=== PATIENT | female | born 1935 | race Caucasian/White ===

== ENCOUNTER 2017-03-26 18:12 | Emergency (ER) | payer MEDICARE, BC ==
[2017-03-26] MEDS ORDERED: Aspirin 81 MG Tab.Chew PO ONE (18:39)
[2017-03-26] MEDS ORDERED: Nitroglycerin 2% Oint 1 GM UD Packet TOP ONE (18:39)
[2017-03-26] MEDS ORDERED: Ketorolac 30 MG/ML SDV IVPUSH ONE (18:39)
--- NOTE | 2017-03-26 18:45 | EDM.PDOC ---
ED HPI GENERAL MEDICAL PROBLEM - General Chief Complaint: Chest Pain Stated Complaint: PT HAS CHEST PAINS Time Seen by Provider: 03/26/17 18:30 Source of Information: Reports: Patient History Limitations: Reports: No Limitations - History of Present Illness INITIAL COMMENTS - FREE TEXT/NARRATIVE: History of present illness: [81-year-old female comes in with a male of complaints that range from chest pain, to crunching neck, to pressure in her ears, as well as dialoguing about a voice she thinks she hears that then she looks and no one is there.] Review of systems: As per history of present illness and below otherwise all systems reviewed and negative. Past medical history: As per history of present illness and as reviewed below otherwise noncontributory. Surgical history: As per history of present illness and as reviewed below otherwise noncontributory. Social history: No reported history of drug or alcohol abuse. Family history: As per history of present illness and as reviewed below otherwise noncontributory. Physical exam: HEENT: Atraumatic, normocephalic, pupils reactive, negative for conjunctival pallor or scleral icterus, mucous membranes moist, throat clear, neck supple, nontender, trachea midline. Lungs: Clear to auscultation, breath sounds equal bilaterally, chest nontender. Heart: S1S2, regular, negative for clicks, rubs, or JVD. Abdomen: Soft, nondistended, nontender. Negative for masses or hepatosplenomegaly. Negative for costovertebral tenderness. Pelvis: Stable nontender. Genitourinary: Deferred. Rectal: Deferred. Extremities: Atraumatic, negative for cords or calf pain. Neurovascular unremarkable. Neuro: Awake, alert, oriented. Cranial nerves II through XII unremarkable. Cerebellum unremarkable. Motor and sensory unremarkable throughout. Exam nonfocal. Patient's chest x-ray is negative for any acute findings the patient does have a mild elevation of her white blood cell dialogue with the hospitalist and with her history as well as her age and fragility we will place her inpatient for observation status tonight to see if she declares herself. Diagnostics: [CBC, CMP, EKG, troponin, chest x-ray] Therapeutics: [Saline lock, Toradol, aspirin, nitroglycerin] Impression: Leukocytosis] Plan: [Mental observation status] Definitive disposition and diagnosis as appropriate pending reevaluation and review of above. Middle Epigastric Pain Score (Numeric/FACES): 4 - Related Data Allergies Allergy/AdvReac Type Severity Reaction Status Date / Time erythromycin base Allergy Cannot Verified 03/26/17 18:41 Remember succinylcholine Allergy Anaphylactic Verified 03/26/17 18:41 Shock Sulfa (Sulfonamide Allergy Cannot Verified 03/26/17 18:41 Antibiotics) Remember thiopental [From Pentothal] Allergy Cannot Verified 03/26/17 18:41 Remember Home Meds: Home Meds Aspirin [Halfprin] 81 mg PO ASDIRECTED 03/26/17 [History] Estradiol 1 tab PO ASDIRECTED 03/26/17 [History] LORazepam 0.5 mg PO DAILY 03/26/17 [History] Levothyroxine 1 tab PO DAILY 03/26/17 [History] Lisinopril 10 mg PO BID 03/26/17 [History] Metoprolol Tartrate [Lopressor] 50 mg PO BID 03/26/17 [History] amLODIPine [Norvasc] 5 mg PO DAILY PRN 03/26/17 [History] ED ROS GENERAL - Review of Systems Review Of Systems: See Below (See history of present illness) ED EXAM, GENERAL - Physical Exam Exam: See Below (See history of present illness) Course - Vital Signs Last Recorded V/S: Last Vital Signs Temp 35.9 C 03/26/17 18:15 Pulse 72 03/26/17 18:52 Resp 15 03/26/17 18:52 BP 140/86 03/26/17 18:52 Pulse Ox 97 03/26/17 18:52 - Orders/Labs/Meds Orders: Active Orders 24 hr Category Date Time Status EKG Documentation Completion [RC] STAT Care 03/26/17 18:40 Active Chest 1V Frontal [CR] Stat Exams 03/26/17 18:39 Taken UA W/MICROSCOPIC [URIN] Stat Lab 03/26/17 20:29 Uncollected Saline Lock Insert [OM.PC] Stat Oth 03/26/17 18:39 Ordered Labs: Laboratory Tests 03/26/17 03/26/17 Range/Units 18:25 18:25 WBC 12.39 H (4.0-11.0) K/uL RBC 4.73 (4.30-5.90) M/uL Hgb 14.2 (12.0-16.0) g/dL Hct 42.0 (36.0-46.0) % MCV 88.8 (80.0-98.0) fL MCH 30.0 (27.0-32.0) pg MCHC 33.8 (31.0-37.0) g/dL RDW Std Deviation 45.9 (28.0-62.0) fl RDW Coeff of Leida 14 (11.0-15.0) % Plt Count 276 (150-400) K/uL MPV 10.00 (7.40-12.00) fL Neut % (Auto) 61.7 (48.0-80.0) % Lymph % (Auto) 28.0 (16.0-40.0) % Juab % (Auto) 8.9 (0.0-15.0) % Eos % (Auto) 1.0 (0.0-7.0) % Baso % (Auto) 0.4 (0.0-1.5) % Neut # (Auto) 7.6 H (1.4-5.7) K/uL Lymph # (Auto) 3.5 H (0.6-2.4) K/uL Juab # (Auto) 1.1 H (0.0-0.8) K/uL Eos # (Auto) 0.1 (0.0-0.7) K/uL Baso # (Auto) 0.1 (0.0-0.1) K/uL Nucleated RBC % 0.0 /100WBC Nucleated RBCs # 0 K/uL Sodium 140 (136-146) mmol/L Potassium 3.4 L (3.5-5.1) mmol/L Chloride 103 (98-110) mmol/L Carbon Dioxide 27 (21-31) mmol/L BUN 15 (6.0-23.0) mg/dL Creatinine 1.0 (0.6-1.5) mg/dL Est Cr Clr Drug Dosing TNP Estimated GFR (MDRD) 53.0 ml/min Glucose 152 H (60-110) mg/dL Calcium 9.1 (8.8-10.8) mg/dL Total Bilirubin 0.3 (0.1-1.5) mg/dL AST 21 (5-40) IU/L ALT 15 (8-54) IU/L Alkaline Phosphatase 82 (40-150) Troponin I < 0.10 (0.0-0.29) NG/ML Total Protein 7.8 (6.0-8.0) g/dL Albumin 4.0 (3.4-4.8) g/dL Globulin 3.8 H (2.0-3.5) g/dL Albumin/Globulin Ratio 1.1 L (1.3-2.8) Amylase 36 (10-90) U/L Lipase 45 (7-80) U/L Meds: Medications Discontinued Medications Generic Name Dose Route Start Last Admin Trade Name Freq PRN Reason Stop Dose Admin Aspirin 324 mg 03/26/17 18:39 03/26/17 18:47 Aspirin PO 03/26/17 18:40 324 mg ONETIME ONE Administration Ketorolac Tromethamine 30 mg 03/26/17 18:39 03/26/17 18:50 Toradol IVPUSH 03/26/17 18:40 Not Given ONETIME ONE Nitroglycerin 0.5 gm 03/26/17 18:39 03/26/17 18:50 Nitro-Bid 2% TOP 03/26/17 18:40 0.5 gm ONETIME ONE Administration Departure - Departure Time of Disposition: 20:32 Disposition: Refer to Observation Condition: Good Clinical Impression: Leukocytosis - Discharge Information Forms: ED Department Discharge - My Orders Last 24 Hours: My Active Orders 03/26/17 18:39 Chest 1V Frontal [CR] Stat Saline Lock Insert [OM.PC] Stat 03/26/17 18:40 EKG Documentation Completion [RC] STAT 03/26/17 20:29 UA W/MICROSCOPIC [URIN] Stat - Assessment/Plan Last 24 Hours: My Active Orders 03/26/17 18:39 Chest 1V Frontal [CR] Stat Saline Lock Insert [OM.PC] Stat 03/26/17 18:40 EKG Documentation Completion [RC] STAT 03/26/17 20:29 UA W/MICROSCOPIC [URIN] Stat
[2017-03-26 19:14] LABS: CHLORIDE,CL 103 mmol/L (98-110); SODIUM,NA 140 mmol/L (136-146)
[2017-03-26 21:14] VITALS: BP 140/80
--- NOTE | 2017-03-27 14:10 | CR ---
EXAM DATE: 03/26/17 PATIENT'S AGE: 81 Patient: SHEILA CHOI Facility: [place], [place] Site . Site : [id number] Study: XRay Chest [id number]/26/2017 7:49:56 PM Ordering Physician: Doctor Maciel Final Report: Indication: Chest pain Technique: Chest 1 view Comparison: None Findings/Impression: Cardiovascular and mediastinum: Unremarkable cardiac size for a portable technique. An ectatic, unfolded aorta. Sternotomy sutures and a left chest cardiac pacer. Lungs and pleural space: Lungs are clear. No sign of infiltrate or mass. No sign of pleural effusion. No pneumothorax. Bones and soft tissues: A cholecystectomy clip. No significant osseous abnormality seen. Dictated by Jose G Walton MD @ 03/26/2017 8:12:34 PM Dictated by: Jose G Walton MD @ 03/26/2017 20:12:45 (Electronic Signature) Report Signed by Proxy. MAIA
== END 2017-03-26 21:05 | disposition left against medical advice (07) ==
LOC: MW.ED 18:12 → MW.MS 20:32 → UNDOADMOB 20:32 → MW.ED 21:05 → UNDODISOB 21:05
DX: D72.829 Elevated white blood cell count, unspecified (principal); R07.9 Chest pain, unspecified; Z88.1 Allergy status to other antibiotic agents; Z88.2 Allergy status to sulfonamides; Z88.8 Allergy status to other drugs, medicaments and biological substances; Z79.82 Long term (current) use of aspirin; Z79.899 Other long term (current) drug therapy
CPT/HCPCS: 36415; 71010; 80053; 81001; 82150; 83690; 84484; 85025; 93005; 99285; A9270; 99283

== ENCOUNTER 2018-10-17 14:42 | Emergency (ER) | payer MEDICARE, BC ==
--- NOTE | 2018-10-17 14:52 | EDM.PDOC ---
ED HPI GENERAL MEDICAL PROBLEM - General Chief Complaint: Trauma Stated Complaint: FALL Time Seen by Provider: 10/17/18 14:49 Source of Information: Reports: Patient History Limitations: Reports: No Limitations - History of Present Illness INITIAL COMMENTS - FREE TEXT/NARRATIVE: HISTORY AND PHYSICAL: History of present illness: Patient is an 83-year-old female presents to the ED today after she had fallen and hit her front teeth out just prior to arrival to the ED. Patient states she was walking and tripped over a rug and fell into a shelving and hit the front of her teeth on the shelf. Patient has a tooth with her in a container when she arrives to the ED. Patient denies loss of consciousness. Patient is on a baby aspirin daily. Other than the teeth injury, patient denies any other symptoms at this time. Patient states she does have a pacemaker and an artificial valve. Patient denies chest pain or shortness of breath. Patient denies feeling dizzy when she fell. Patient denies fever, chills, chest pain, shortness of breath, or cough. Denies headache, neck stiff ness, change in vision, syncope, or near syncope. Denies nausea, vomiting, abdominal pain, diarrhea, constipation, or dysuria. Has not noted any blood in urine or stool. Patient has been eating and drinking appropriately. Review of systems: As per history of present illness and below otherwise all systems reviewed and negative. Past medical history: As per history of present illness and as reviewed below otherwise noncontributory. Surgical history: As per history of present illness and as reviewed below otherwise noncontributory. Social history: See social history for further information Family history: As per history of present illness and as reviewed below otherwise noncontributory. Physical exam: General: Patient is alert, oriented, and in no acute distress. Patient laying comfortably on exam table. HEENT: Atraumatic, normocephalic, pupils equal and reactive bilaterally, negative for conjunctival pallor or scleral icterus, mucous membranes moist, TMs normal bilaterally, throat clear, neck supple, nontender, trachea midline. No drooling or trismus noted. No meningeal signs. No hot potato voice noted. Tooth #6-9 are completely missing and in patient's container that she brought him. The gumline is not currently bleeding. No obvious step-offs, deformities, or crepitus noted of palpation of the skull and facial bones. EOMs intact. Lungs: Clear to auscultation, breath sounds equal bilaterally, chest nontender. Heart: Distant S1S2, regular rate and rhythm without overt murmur Abdomen: Soft, nondistended, nontender. Negative for masses or hepatosplenomegaly. Negative for costovertebral tenderness. Pelvis: Stable nontender. Genitourinary: Deferred. Rectal: Deferred. Skin: Intact, warm, dry. No lesions or rashes noted. Extremities: Atraumatic, negative for cords or calf pain. Neurovascular unremarkable. Neuro: Awake, alert, oriented. Cranial nerves II through XII unremarkable. Cerebellum unremarkable. Motor and sensory unremarkable throughout. Exam nonfocal. Notes: Trauma alert was called upon arrival to the ED. Dr. Camarena directly involved in patient care. ENT referral generated. Discussed the importance for follow-up with primary care provider. Voices understanding and is agreeable to plan of care. Denies any further questions or concerns at this time. Diagnostics: Head CT, maxillofacial CT, (CBC, CMP, UA, EKG, troponin--patient declines all labwork/blood work), chest x-ray Therapeutics: Patient declines Prescription: Patient declines narcotic medication. Amoxicillin Impression: Maxillary sinus nondisplaced fracture Teeth evulsion Head injury Plan: 1. Take medication as prescribed. Follow-up with the research animal facility supervisor as discussed. 2. Take Tylenol as directed for pain and discomfort. Follow-up with your dentist as discussed. Return to the ED as needed and as discussed. Definitive disposition and diagnosis as appropriate pending reevaluation and review of above. - Related Data Allergies Allergy/AdvReac Type Severity Reaction Status Date / Time erythromycin base Allergy Cannot Verified 10/17/18 14:44 Remember succinylcholine Allergy Anaphylactic Verified 10/17/18 14:44 Shock Sulfa (Sulfonamide Allergy Cannot Verified 10/17/18 14:44 Antibiotics) Remember thiopental [From Pentothal] Allergy Cannot Verified 10/17/18 14:44 Remember Home Meds: Home Meds Amoxicillin [IMW: Amoxicillin] 500 mg PO .THREE TIMES DAILY #30 cap 03/26/17 [Rx ] Aspirin [Halfprin] 81 mg PO ASDIRECTED 03/26/17 [History] Estradiol 1 tab PO ASDIRECTED 03/26/17 [History] LORazepam 0.5 mg PO DAILY 03/26/17 [History] Levothyroxine 1 tab PO DAILY 03/26/17 [History] Lisinopril 10 mg PO BID 03/26/17 [History] Metoprolol Tartrate [Lopressor] 50 mg PO BID 03/26/17 [History] amLODIPine [Norvasc] 5 mg PO DAILY PRN 03/26/17 [History] Past Medical History HEENT History: Reports: None Cardiovascular History: Reports: Heart Valve Replacement, Hypertension, Pacemaker Respiratory History: Reports: None Gastrointestinal History: Reports: GERD Genitourinary History: Reports: Other (See Below) Other Genitourinary History: bladder repair [employer] History: Reports: None Musculoskeletal History: Reports: None Neurological History: Reports: None Psychiatric History: Reports: Anxiety Endocrine/Metabolic History: Reports: None Hematologic History: Reports: None Immunologic History: Reports: None Oncologic (Cancer) History: Reports: None Dermatologic History: Reports: None - Infectious Disease History Infectious Disease History: Reports: Chicken Pox - Past Surgical History Head Surgeries/Procedures: Reports: None HEENT Surgical History: Reports: None Cardiovascular Surgical History: Reports: None Respiratory Surgical History: Reports: None GI Surgical History: Reports: Cholecystectomy, Other (See Below) Other GI Surgeries/Procedures: hietal hernia, gastritis hx, pancreatitis Female Surgical History: Reports: D&C, Hysterectomy, Oophorectomy Endocrine Surgical History: Reports: None Neurological Surgical History: Reports: None Musculoskeletal Surgical History: Reports: None Oncologic Surgical History: Reports: None Dermatological Surgical History: Reports: None Social & Family History - Family History Family Medical History: Noncontributory - Tobacco Use Smoking Status *Q: Former Smoker Used Tobacco, but Quit: Yes Month/Year Tobacco Last Used: 2008 - Caffeine Use Caffeine Use: Reports: Coffee - Recreational Drug Use Recreational Drug Use: No Review of Systems - Review of Systems Review Of Systems: ROS reveals no pertinent complaints other than HPI. ED EXAM, GENERAL - Physical Exam Exam: See Below (See dictation) Course - Vital Signs Last Recorded V/S: Last Vital Signs Temp 35.7 C 10/17/18 14:43 Pulse 82 10/17/18 16:11 Resp 16 10/17/18 16:11 BP 158/91 H 10/17/18 16:11 Pulse Ox 93 L 10/17/18 16:11 - Orders/Labs/Meds Orders: Active Orders 24 hr Category Date Time Status Patient Status [ADT] Stat ADT 10/17/18 15:35 Active Cardiac Monitoring [RC] . DIRECTED Care 10/17/18 15:35 Active EKG Documentation Completion [RC] STAT Care 10/17/18 14:50 Active UA RFX FELECIA AND CULT IF INDIC [URIN] Stat Lab 10/17/18 14:50 Ordered Departure - Departure Time of Disposition: 15:58 Disposition: Home, Self-Care 01 Clinical Impression: Maxillary sinus fracture Qualifiers: Encounter type: initial encounter Fracture type: closed Qualified Code(s): S02.401A - Maxillary fracture, unspecified side, initial encounter for closed fracture Avulsion of multiple teeth due to trauma Qualifiers: Encounter type: initial encounter Qualified Code(s): S03.2XXA - Dislocation of tooth, initial encounter Head injury Qualifiers: Encounter type: initial encounter Qualified Code(s): S09.90XA - Unspecified injury of head, initial encounter - Discharge Information Instructions: Tooth Injuries, [id number], Head Injury, Adult, [id number] Referrals: PCP,Unknown [Primary Care Provider] - Forms: ED Department Discharge Additional Instructions: The following information is given to patients seen in the emergency department who are being discharged to home. This information is to outline your options for follow-up care. We provide all patients seen in our emergency department with a follow-up referral. The need for follow-up, as well as the timing and circumstances, are variable depending upon the specifics of your emergency department visit. If you don't have a primary care physician on staff, we will provide you with a referral. We always advise you to contact your personal physician following an emergency department visit to inform them of the circumstance of the visit and for follow-up with them and/or the need for any referrals to a consulting specialist. The emergency department will also refer you to a specialist when appropriate. This referral assures that you have the opportunity for follow-up care with a specialist. All of these measure are taken in an effort to provide you with optimal care, which includes your follow-up. Under all circumstances we always encourage you to contact your private physician who remains a resource for coordinating your care. When calling for follow-up care, please make the office aware that this follow-up is from your recent emergency room visit. If for any reason you are refused follow-up, please contact the [facility] Emergency Department at and asked to speak to the emergency department charge nurse. [facility] [address] [place] [address] [facility] [address] [place] [id number] [facility] Ears, Nose, and Throat Specialist, Dr. Shawn Figueroa [phone] [facility] [address] 1. Take medication as prescribed. Follow-up with the research animal facility supervisor as discussed. 2. Take Tylenol as directed for pain and discomfort. Follow-up with your dentist as discussed. Return to the ED as needed and as discussed. - My Orders Last 24 Hours: My Active Orders 10/17/18 14:50 EKG Documentation Completion [RC] STAT UA RFX FELECIA AND CULT IF INDIC [URIN] Stat 10/17/18 15:35 Patient Status [ADT] Stat Cardiac Monitoring [RC] . DIRECTED - Assessment/Plan Last 24 Hours: My Active Orders 10/17/18 14:50 EKG Documentation Completion [RC] STAT UA RFX FELECIA AND CULT IF INDIC [URIN] Stat 10/17/18 15:35 Patient Status [ADT] Stat Cardiac Monitoring [RC] . DIRECTED
--- NOTE | 2018-10-17 15:33 | CT ---
HISTORY: Trauma. Fall from a standing position. COMPARISON: Facial CT 09/1918 TECHNIQUE: Noncontrast axial images were obtained through the brain. FINDINGS: Sanchez-white matter differentiation is preserved. No evidence for acute intracranial hemorrhage or infarction. No midline shift or mass effect. Ventricles are nondilated and symmetric. Mild volume loss. Deep white matter and periventricular hypodensities most consistent with small vessel ischemic change. There is an air-fluid level right maxillary sinus and nondisplaced fracture of the lateral wall the maxillary sinus better noted on today`s facial CT. Postsurgical changes in the medial antral aguilar. IMPRESSION: 1. No acute intracranial pathology. 2. Nondisplaced fracture of the lateral wall the right maxillary sinus. Please note that all CT scans at this facility use dose modulation, iterative reconstruction, and/or weight-based dosing when appropriate to reduce radiation dose to as low as reasonably achievable. Dictated by Barbi Penaloza MD @ Oct 17 2018 3:27PM Signed by Dr. Barbi Penaloza @ Oct 17 2018 3:32PM
--- NOTE | 2018-10-17 15:33 | CR ---
TECHNIQUE: Portable AP chest. INDICATION: Fall. FINDINGS: Multiple EKG wires overlie the chest. The lungs are clear. Heart size and pulmonary vascularity are normal. No pneumothorax identified. Sternotomy. Left-sided pacemaker. IMPRESSION: No acute chest findings. Dictated by Edvin Edwards MD @ 10/17/2018 3:32:15 PM Dictated by: Edvin Edwards MD @ 10/17/2018 15:32:22 (Electronically Signed)
--- NOTE | 2018-10-17 15:40 | CT ---
HISTORY: Fall from a standing position. COMPARISON: Head CT 10/17/2018. Technique : Noncontrast axial images of the facial bones. FINDINGS: There is a nondisplaced fracture of the lateral wall the right maxillary sinus with small amount of blood layering in the right maxillary sinus. Postsurgical changes of medial wall maxillary sinus. There is soft tissue swelling over the right face and no was. There is a small soft tissue ossification right lateral bones. Dental amalgam present with streak artifact. IMPRESSION: Nondisplaced fracture lateral wall right maxillary sinus with small amount of blood in the right maxillary sinus. Mild soft tissue trauma to the right face and nose. Please note that all CT scans at this facility use dose modulation, iterative reconstruction, and/or weight-based dosing when appropriate to reduce radiation dose to as low as reasonably achievable. Dictated by Barbi Penaloza MD @ Oct 17 2018 3:37PM Signed by Dr. Barbi Penaloza @ Oct 17 2018 3:37PM
[2018-10-17 16:11] VITALS: BP 158/91
== END 2018-10-17 16:19 | disposition home or self-care (01) ==
LOC: MW.ED 14:42
DX: S02.40CA Maxillary fracture, right side, initial encounter for closed fracture (principal); S03.2XXA Dislocation of tooth, initial encounter; S61.216A Laceration without foreign body of right little finger without damage to nail, initial encounter; S61.213A Laceration without foreign body of left middle finger without damage to nail, initial encounter; W01.198A Fall on same level from slipping, tripping and stumbling with subsequent striking against other object, initial encounter; Z88.1 Allergy status to other antibiotic agents; Z88.2 Allergy status to sulfonamides; Z79.82 Long term (current) use of aspirin; Z79.899 Other long term (current) drug therapy; I10 Essential (primary) hypertension; Z90.49 Acquired absence of other specified parts of digestive tract; Z90.710 Acquired absence of both cervix and uterus; Z87.891 Personal history of nicotine dependence
CPT/HCPCS: 70450; 70450-26; 70486; 70486-26; 71045; 71045-26; 93005; 99284; 99284-25

== ENCOUNTER 2019-03-22 18:43 | Emergency (ER) | payer MEDICARE, BC ==
[2019-03-22] MEDS ORDERED: Sodium Chloride 0.9% 1,000 ML IV ONE (18:46)
[2019-03-22] MEDS ORDERED: Furosemide 40 MG/4 ML VIAL IVPUSH ONE (18:47)
[2019-03-22] MEDS ORDERED: Piperacillin/Tazobactam 3.375 GM in Sodium Chloride 0.9% 50 ML IV ONE (18:47)
[2019-03-22] MEDS ORDERED: methylPREDNISolone Sodium Succinate 125 MG/2 ML SDV IVPUSH ONE (18:47)
[2019-03-22] MEDS ORDERED: Albuterol/Ipratropium 3.0-0.5 MG/3 ML Neb Soln NEB ONE (18:47)
--- NOTE | 2019-03-22 18:55 | EDM.PDOC ---
ED HPI GENERAL MEDICAL PROBLEM - General Stated Complaint: CARDIAC ARREST Time Seen by Provider: 03/22/19 18:53 Source of Information: Reports: Patient - History of Present Illness INITIAL COMMENTS - FREE TEXT/NARRATIVE: HISTORY AND PHYSICAL: History of present illness: [Patient presents via EMS [facility] had been in to see primary doctor today not feeling well apparently prescribed Lasix EMS Respiratory distress reported at home, via EMS, on arrival [place] Coma Scale is 3 corneal reflex present patient was intubated Continues to have sinus rhythm with pulse Review of systems: As per history of present illness and below otherwise all systems reviewed and negative. Past medical history: As per history of present illness and as reviewed below otherwise noncontributory. Surgical history: As per history of present illness and as reviewed below otherwise noncontributory. Social history: No reported history of drug or alcohol abuse. Family history: As per history of present illness and as reviewed below otherwise noncontributory. Physical exam: HEENT: Atraumatic, normocephalic, pupils reactive, negative for conjunctival pallor or scleral icterus, mucous membranes moist, throat clear, neck supple, nontender, trachea midline. Lungs: Clear to auscultation, breath sounds equal bilaterally, chest nontender. Heart: S1S2, regular, negative for clicks, rubs, or JVD. Abdomen: Soft, nondistended, nontender. Negative for masses or hepatosplenomegaly. Negative for costovertebral tenderness. Pelvis: Stable nontender. Genitourinary: Deferred. Rectal: Deferred. Extremities: Atraumatic, negative for cords or calf pain. Neurovascular unremarkable. Neuro: Awake, or neural reflex present Diagnostics: [CBC CMP UA troponin INR drug screen EKG Chest 1 view ] Therapeutics: [zosyn Lasix DuoNeb Solu-Medro Bradford-Synephrine Intubation performed via anesthesia ] Impression: G coma scale 3 Corneal reflex present ] Definitive disposition and diagnosis as appropriate pending reevaluation and review of above. - Related Data Allergies Allergy/AdvReac Type Severity Reaction Status Date / Time erythromycin base Allergy Cannot Verified 10/17/18 14:44 Remember succinylcholine Allergy Anaphylactic Verified 10/17/18 14:44 Shock Sulfa (Sulfonamide Allergy Cannot Verified 10/17/18 14:44 Antibiotics) Remember thiopental [From Pentothal] Allergy Cannot Verified 10/17/18 14:44 Remember Home Meds: Home Meds Amoxicillin [IMW: Amoxicillin] 500 mg PO .THREE TIMES DAILY #30 cap 03/26/17 [Rx ] Aspirin [Halfprin] 81 mg PO ASDIRECTED 03/26/17 [History] Estradiol 1 tab PO ASDIRECTED 03/26/17 [History] LORazepam 0.5 mg PO DAILY 03/26/17 [History] Levothyroxine 1 tab PO DAILY 03/26/17 [History] Lisinopril 10 mg PO BID 03/26/17 [History] Metoprolol Tartrate [Lopressor] 50 mg PO BID 03/26/17 [History] amLODIPine [Norvasc] 5 mg PO DAILY PRN 03/26/17 [History] Past Medical History HEENT History: Reports: None Cardiovascular History: Reports: Heart Valve Replacement, Hypertension, Pacemaker Respiratory History: Reports: None Gastrointestinal History: Reports: GERD Genitourinary History: Reports: Other (See Below) Other Genitourinary History: bladder repair [employer] History: Reports: None Musculoskeletal History: Reports: None Neurological History: Reports: None Psychiatric History: Reports: Anxiety Endocrine/Metabolic History: Reports: None Hematologic History: Reports: None Immunologic History: Reports: None Oncologic (Cancer) History: Reports: None Dermatologic History: Reports: None - Infectious Disease History Infectious Disease History: Reports: Chicken Pox - Past Surgical History Head Surgeries/Procedures: Reports: None HEENT Surgical History: Reports: None Cardiovascular Surgical History: Reports: None Respiratory Surgical History: Reports: None GI Surgical History: Reports: Cholecystectomy, Other (See Below) Other GI Surgeries/Procedures: hietal hernia, gastritis hx, pancreatitis Female Surgical History: Reports: D&C, Hysterectomy, Oophorectomy Endocrine Surgical History: Reports: None Neurological Surgical History: Reports: None Musculoskeletal Surgical History: Reports: None Oncologic Surgical History: Reports: None Dermatological Surgical History: Reports: None Social & Family History - Family History Family Medical History: Noncontributory - Caffeine Use Caffeine Use: Reports: Coffee ED ROS GENERAL - Review of Systems Review Of Systems: See Below ED EXAM, GENERAL - Physical Exam Exam: See Below Course - Orders/Labs/Meds Orders: Active Orders 24 hr Category Date Time Status RT Aerosol Therapy [RC] ASDIRECTED Care 03/22/19 18:47 Active Chest 1V Frontal [CR] Stat Exams 03/22/19 18:48 Ordered CBC WITH AUTO DIFF [HEME] Stat Lab 03/22/19 18:46 Ordered COMPREHENSIVE METABOLIC PN,CMP [CHEM] Stat Lab 03/22/19 18:47 Ordered D-DIMER QUANTITATIVE [COAG] Stat Lab 03/22/19 18:56 Ordered DRUG SCREEN, URINE [URCHEM] Stat Lab 03/22/19 18:56 Ordered INR,PT,PROTHROMBIN TIME [COAG] Stat Lab 03/22/19 18:48 Ordered TROPONIN I [CHEM] Stat Lab 03/22/19 18:47 Ordered Piperacillin/Tazobactam [Piperacil-Tazobact] 3.375 gm Med 03/22/19 18:47 Active Sodium Chloride 0.9% [Normal Saline] 50 ml IV ONETIME Sodium Chloride 0.9% [Normal Saline] 1,000 ml Med 03/22/19 18:46 Active IV STAT Medication Orders Piperacillin Sod/Tazobactam (Sod 3.375 gm/ Sodium Chloride) 50 mls @ 100 mls/ hr IV ONETIME ONE Stop: 03/22/19 19:16 Sodium Chloride (Normal Saline) 1,000 mls @ 999 mls/hr IV STAT ONE Stop: 03/22/19 19:46 Meds: Medications Generic Name Dose Route Start Last Admin Trade Name Freq PRN Reason Stop Dose Admin Piperacillin Sod/Tazobactam 50 mls @ 100 mls/hr 03/22/19 18:47 Sod 3.375 gm/ Sodium Chloride IV 03/22/19 19:16 ONETIME ONE Sodium Chloride 1,000 mls @ 999 mls/hr 03/22/19 18:46 Normal Saline IV 03/22/19 19:46 STAT ONE Discontinued Medications Generic Name Dose Route Start Last Admin Trade Name Freq PRN Reason Stop Dose Admin Albuterol/Ipratropium 3 ml 03/22/19 18:47 Duoneb 3.0-0.5 Mg/3 Ml NEB 03/22/19 18:48 ONETIME ONE Furosemide 40 mg 03/22/19 18:47 Lasix IVPUSH 03/22/19 18:48 NOW ONE Methylprednisolone Sodium Succinate 125 mg 03/22/19 18:47 Solu-Medrol IVPUSH 03/22/19 18:48 ONETIME ONE Departure - Departure Time of Disposition: 19:02 Disposition: DC/Tfer to Acute Hospital 02 Condition: Critical Clinical Impression: [place] coma scale total score 3 - Discharge Information - My Orders Last 24 Hours: My Active Orders 03/22/19 18:46 CBC WITH AUTO DIFF [HEME] Stat Sodium Chloride 0.9% [Normal Saline] 1,000 ml IV STAT 03/22/19 18:47 RT Aerosol Therapy [RC] ASDIRECTED COMPREHENSIVE METABOLIC PN,CMP [CHEM] Stat TROPONIN I [CHEM] Stat Piperacillin/Tazobactam [Piperacil-Tazobact] 3.375 gm Sodium Chloride 0.9% [ Normal Saline] 50 ml IV ONETIME 03/22/19 18:48 Chest 1V Frontal [CR] Stat INR,PT,PROTHROMBIN TIME [COAG] Stat 03/22/19 18:56 D-DIMER QUANTITATIVE [COAG] Stat DRUG SCREEN, URINE [URCHEM] Stat - Assessment/Plan Last 24 Hours: My Active Orders 03/22/19 18:46 CBC WITH AUTO DIFF [HEME] Stat Sodium Chloride 0.9% [Normal Saline] 1,000 ml IV STAT 03/22/19 18:47 RT Aerosol Therapy [RC] ASDIRECTED COMPREHENSIVE METABOLIC PN,CMP [CHEM] Stat TROPONIN I [CHEM] Stat Piperacillin/Tazobactam [Piperacil-Tazobact] 3.375 gm Sodium Chloride 0.9% [ Normal Saline] 50 ml IV ONETIME 03/22/19 18:48 Chest 1V Frontal [CR] Stat INR,PT,PROTHROMBIN TIME [COAG] Stat 03/22/19 18:56 D-DIMER QUANTITATIVE [COAG] Stat DRUG SCREEN, URINE [URCHEM] Stat
[2019-03-22] MEDS ORDERED: Succinylcholine 200 MG/10 ML MDV IV ONE (19:00)
[2019-03-22] MEDS ORDERED: Etomidate 2 MG/ML 20 ML SDV IVPUSH ONE (19:00)
--- NOTE | 2019-03-22 19:01 | PCM.SN ---
- Free Text/Narrative Note: Called to the ER for a patient who is unresponsive and being ventilated via BVM by EMS on arrival. DL with Wong 2 yields grade IV view and the patient was biting. I then aborted intubation and continued with manual BVM until an RSI box was brought to the bedside. Intubation Etomidate 12mg IVP Succinylcholine 100mg IVP DL with wong 2 yields grade I view. 7.5 cuffed ETT was placed. +BBS and + EtCO2. CXR is pending at this time. ABG is also pending at this time as well. Unable to obtain SpO2 at this time. Respiratory have been unable to obtain ABG , Rt femoral artery was used to draw 10mL of bright red blood for labs and ABG. Nursing will hold pressure. Anesthesia time: [id number]
[2019-03-22] MEDS ORDERED: fentaNYL 100 MCG/2 ML SDV ONE (19:15)
--- NOTE | 2019-03-22 19:24 | CR ---
Indication: Post intubation. Technique: A single AP portable view of the chest was obtained. Comparison: October 17, 2018. Findings: An ET tube is identified with the tip 1 cm superior to level of alberto. A left-sided pacemaker is identified. A defibrillator is overlying the right chest. A small left pleural effusions identified. The right lung is clear. No pneumothorax is identified. Impression: Intubation. Dictated by Zayda Lackey MD @ Mar 22 2019 7:21PM Signed by Dr. Zayda aLckey @ Mar 22 2019 7:22PM
[2019-03-22 19:48] LABS: BLOOD UREA NITROGEN,BUN 18 mg/dL (7.0-18.0); CARBON DIOXIDE,CO2 11.4 mmol/L (21.0-32.0); CHLORIDE,CL 105 mmol/L (98-107); GLUCOSE RANDOM 394 mg/dL (74-106); POTASSIUM,K 3.8 mmol/L (3.5-5.1); SODIUM,NA 139 mmol/L (136-145)
[2019-03-22] MEDS ORDERED: fentaNYL 50 MCG/ML SDV IVPUSH ONE (20:07)
[2019-03-22 20:12] VITALS: BP 96/58; PULSE 80
[2019-03-23] MEDS ORDERED: Sodium Chloride 0.9% 1,000 ML IV SCH (19:00)
== END 2019-03-22 20:00 ==
LOC: MW.ED 18:43
DX: R40.2432 Glasgow coma scale score 3-8, at arrival to emergency department (principal); I10 Essential (primary) hypertension; F41.9 Anxiety disorder, unspecified; Z88.2 Allergy status to sulfonamides; Z88.1 Allergy status to other antibiotic agents; Z88.4 Allergy status to anesthetic agent; Z79.82 Long term (current) use of aspirin; Z95.2 Presence of prosthetic heart valve; Z95.0 Presence of cardiac pacemaker; Z79.899 Other long term (current) drug therapy
CPT/HCPCS: 31500; 36415; 36600; 51702; 71045; 80053; 80305; 82803; 83605; 83880; 84484; 85025; 85379; 85610; 87040; 93005; 96360; 96365; 96375; 99291; J0330; J1940; J2543; J2930; J3010; J3490; J7040; J7050; 99285; J7620-GY